=== PATIENT | male | born 1990 | race Caucasian/White ===

== ENCOUNTER 2019-05-09 02:50 | Emergency (ER) | payer SELFPAY ==
[~2019-05-09] VITALS: Ht 170.2 cm; Wt 81.8 kg
[2019-05-09 02:50] VITALS: BP 190/90
== END 2019-05-09 04:21 | disposition home or self-care (01) ==
LOC: M ED 02:50
DX: K08.89 Other specified disorders of teeth and supporting structures (principal); Z88.1 Allergy status to other antibiotic agents; F17.210 Nicotine dependence, cigarettes, uncomplicated

== ENCOUNTER → 2020-04-06 | Emergency (ER) | payer SELFPAY | END | disposition left against medical advice (07) | LOC: M ED 21:09 | DX: Z53.21 Procedure and treatment not carried out due to patient leaving prior to being seen by health care provider (principal) ==

== ENCOUNTER 2020-04-07 10:13 | Emergency (ER) | payer SELFPAY ==
[2020-04-07] MEDS ORDERED: KETOROLAC 30 MG/ML 1ML VIAL As Ordered ONE (11:16)
[2020-04-07] MEDS ORDERED: KETOROLAC 30 MG/ML 1ML VIAL ONE (11:16)
== END 2020-04-07 11:52 | disposition home or self-care (01) ==
LOC: M ED 10:13
DX: K08.89 Other specified disorders of teeth and supporting structures (principal); Z88.1 Allergy status to other antibiotic agents
CPT/HCPCS: 96372; 99283; J1885

== ENCOUNTER 2020-05-20 18:44 | Emergency (ER) | payer SELFPAY ==
[~2020-05-20] VITALS: Ht 167.6 cm; Wt 77.3 kg
--- NOTE | 2020-05-20 19:39 | REPVR ---
PROCEDURE INFORMATION: Exam: XR Right Ankle Exam date and time: 05/20/2020 7:06 PM Age: 30 years old Clinical indication: Pain; Ankle; Right; Additional info: Right ankle pain; ? Injury TECHNIQUE: Imaging protocol: XR Right ankle. Views: 3 or more views. COMPARISON: No relevant prior studies available. FINDINGS: Bones/joints: Nondisplaced oblique fracture of the medial malleolus. Findings suspicious for tiny nondisplaced avulsion fracture at the lateral talus, likely at the anterior talofibular ligament attachment, seen on the AP examination. Intact ankle mortise. Ankle joint effusion. Soft tissues: Swelling of the ankle soft tissues. IMPRESSION: 1. Nondisplaced fracture of the medial malleolus. 2. Findings suspicious for nondisplaced avulsion fracture of the lateral talus, likely at the anterior talofibular ligament attachment. Electronically signed by: Hollis Bales On 05/20/2020 19:39:03 PM
[2020-05-20 20:08] VITALS: BP 131/69
--- NOTE | 2020-05-21 07:53 | ED PDOC ---
Post-Departure Follow-Up right ankle film faxed to dr roca for fu Jacinto Ken MD May 21, 2020 07:53
== END 2020-05-20 20:10 | disposition home or self-care (01) ==
LOC: M ED 18:44
DX: S82.51XA Displaced fracture of medial malleolus of right tibia, initial encounter for closed fracture (principal); X50.9XXA Other and unspecified overexertion or strenuous movements or postures, initial encounter; Y92.018 Other place in single-family (private) house as the place of occurrence of the external cause; Z88.1 Allergy status to other antibiotic agents

== ENCOUNTER 2021-03-04 16:19 | Emergency (ER) | payer SELFPAY ==
[2021-03-04 17:00] VITALS: BP 134/64
== END 2021-03-04 18:06 | disposition left against medical advice (07) ==
LOC: EDBD 16:19 → M ED 16:19
DX: T50.901A Poisoning by unspecified drugs, medicaments and biological substances, accidental (unintentional), initial encounter (principal); X58.XXXA Exposure to other specified factors, initial encounter; Y92.89 Other specified places as the place of occurrence of the external cause; F15.10 Other stimulant abuse, uncomplicated; Z88.1 Allergy status to other antibiotic agents; F17.210 Nicotine dependence, cigarettes, uncomplicated

== ENCOUNTER → 2023-01-22 | Outpatient (CLI) | payer OTHER, SELFPAY ==
[2023-01-22 16:03] LABS: HEMATOCRIT 42.4 % (42.0-52.0); HEMOGLOBIN 14.3 g/dl (13.5-17.5); MEAN CORPUSCULAR HEMOGLOBIN 31.5 pg (27.0-33.0); MEAN CORPUSCULAR HGB CONC 33.7 g/dl (32.0-36.5); MEAN CORPUSCULAR VOLUME 93.4 fl (80.0-96.0); PLATELET COUNT, AUTOMATED 211 10^3/uL (150-450); RED BLOOD COUNT 4.54 10^6/uL (4.30-6.10); WHITE BLOOD COUNT 5.2 10^3/uL (4.0-10.0)
[2023-01-22 16:27] LABS: ALBUMIN 4.5 G/DL (3.2-5.2); ALKALINE PHOSPHATASE 71 U/L (46-116); ALT/SGPT 17 U/L (7.0-40); AST/SGOT 23 U/L (<34); BILIRUBIN,TOTAL 1.4 MG/DL (0.3-1.2); BLOOD UREA NITROGEN 16 MG/DL (9-23); CALCIUM LEVEL 9.3 MG/DL (8.5-10.1); CARBON DIOXIDE LEVEL 29 MMOL/L (20-31); CHLORIDE LEVEL 101 MMOL/L (98-107); CREATININE FOR GFR 0.94 MG/DL (0.70-1.30); GLOMERULAR FILTRATION RATE > 60.0 (>60); GLUCOSE, FASTING 116 MG/DL (60-100); POTASSIUM SERUM 4.1 MMOL/L (3.5-5.1); SODIUM LEVEL 139 MMOL/L (136-145); TOTAL PROTEIN 7.7 G/DL (5.7-8.2)
[2023-01-22 16:47] LABS: HEPATITIS B SURFACE ANTIGEN NEGATIVE (NEGATIVE)
[2023-01-22 16:59] LABS: HIV 1&2 SCREEN NEGATIVE (NEGATIVE)
[2023-01-22 17:41] LABS: GC DNA AMPLIFICATION NEGATIVE (NEGATIVE)
[2023-01-22 18:20] LABS: HEPATITIS C VIRUS ABY INDEX > 11.0 INDEX (<0.8)
== END ==
LOC: M PLALAB 12:45
PROVIDERS: ATTEND Family Medicine
DX: F11.20 Opioid dependence, uncomplicated (principal)

== ENCOUNTER 2023-03-25 22:03 | Emergency (ER) | payer OTHER ==
[~2023-03-25] VITALS: Ht 167.6 cm; Wt 73.6 kg
[2023-03-25 22:04] VITALS: BP 128/72; TEMP 98; O2SAT 96
== END 2023-03-26 03:55 | disposition left against medical advice (07) ==
LOC: M ED 22:03
DX: S69.91XA Unspecified injury of right wrist, hand and finger(s), initial encounter (principal); X58.XXXA Exposure to other specified factors, initial encounter; Y92.89 Other specified places as the place of occurrence of the external cause; Y93.89 Activity, other specified; Y99.8 Other external cause status; Z53.21 Procedure and treatment not carried out due to patient leaving prior to being seen by health care provider

== ENCOUNTER 2023-03-30 16:33 | Emergency (ER) | payer MEDICAID, OTHER ==
[~2023-03-30] VITALS: Ht 167.6 cm; Wt 73.1 kg
[2023-03-30 16:34] VITALS: BP 126/61; TEMP 97.3; O2SAT 97
== END 2023-03-30 17:52 | disposition left against medical advice (07) ==
LOC: M ED 16:33
DX: Z53.21 Procedure and treatment not carried out due to patient leaving prior to being seen by health care provider (principal)

== ENCOUNTER 2023-04-01 11:46 | Emergency (ER) | payer MEDICAID ==
[~2023-04-01] VITALS: Ht 167.6 cm; Wt 72.3 kg
[2023-04-01 11:46] VITALS: BP 136/85; TEMP 97.8; O2SAT 97
== END 2023-04-01 15:25 | disposition home or self-care (01) ==
LOC: M ED 11:46
DX: S62.360A Nondisplaced fracture of neck of second metacarpal bone, right hand, initial encounter for closed fracture (principal); W22.8XXA Striking against or struck by other objects, initial encounter; Y92.009 Unspecified place in unspecified non-institutional (private) residence as the place of occurrence of the external cause; Y93.89 Activity, other specified; Y99.8 Other external cause status; Z88.1 Allergy status to other antibiotic agents

== ENCOUNTER → 2023-05-01 | Outpatient (CLI) | payer MEDICAID | LOC: M SOG 07:58 | PROVIDERS: ATTEND Physician Assistant | DX: S62.33 Displaced fracture of neck of other metacarpal bone (principal); Z53.9 Procedure and treatment not carried out, unspecified reason ==